=== PATIENT | male | born 1960 | race Caucasian/White ===

== ENCOUNTER 2024-06-13 21:43 | Observation (INO) ==
--- NOTE | 2024-06-13 22:00 | Emergency Department Note ---
Impression & Plan Atrial fibrillation with rapid ventricular response ED Provider Note NAME: TOOTIE WASHINGTON AGE: 63 SEX: M : 1960 ARRIVES VIA: Walk-In INFORMANT: Patient, ED PROVIDER(S): Moisés Selby DO CHIEF COMPLAINT: Palpitations HPI: The patient is a 63-year-old male who has a history of hypertension who presented to the emergency department for an evaluation of palpitations. The patient states that he has had similar symptoms in the past but is never lasted this long. He is never had a formal diagnosis. The patient denies having any nausea or vomiting. He does complain of some chest tightness. He does complain of mild shortness of breath. The patient took an extra dose of his blood pressure medication prior to coming to the emergency department. He states otherwise he has been compliant with his outpatient medication regimen. The patient does not take any blood thinners. ROS: See above HPI for pertinent positives & negatives. A total of 10 systems reviewed and were otherwise negative. PAST MEDICAL HISTORY: See Below PAST SURGICAL HISTORY: See Below FAMILY HISTORY: See Below SOCIAL HISTORY: See Below HOME MEDICATIONS: See Below ALLERGIES: See Below VITALS: See Below PHYSICAL EXAMINATION: GENERAL: Patient is awake alert in no acute distress patient is resting comfortably and showing no signs of anxiety EYES: The conjunctivae are clear. The pupils are round and reactive. EARS, NOSE, MOUTH AND THROAT: The nose is without any evidence of any deformity. NECK: The neck is nontender and supple. RESPIRATORY: Normal respiratory effort is noted there is no evidence of wheezing rhonchi or rales CARDIOVASCULAR: Tachycardic and irregular heart sounds were noted to auscultation. There is no definite murmur. GASTROINTESTINAL: The abdomen is soft. Abdomen is nontender. MUSCULOSKELETAL/EXTREMITIES: There is no evidence of gross deformity full range of motion is noted in the hips and shoulders. SKIN: There is no obvious evidence of any rash. There are no petechiae, pallor or cyanosis noted. NEUROLOGIC: Patient is awake alert and oriented x3 MEDICAL DECISION MAKING: The patient is a 63-year-old male who presented to the emergency department for an evaluation of palpitations. The patient was having episodes of palpitations over the course the last several weeks. This was very short-lived. He had an episode this evening which continued. The patient presented to the emergency department and was found to be in rapid atrial fibrillation. He was treated with IV magnesium IV fluids and IV Cardizem. On reevaluation he did go to sinus rhythm but he also had an episode of a sinus pause. The patient did not appear to have any symptoms with this episode. I discussed the patient's laboratory and radiographic studies with him. I also [facility] They have agreed to evaluate the patient in the emergency department for further management and disposition. Triage Nursing notes reviewed. Prior medical records reviewed Vital Signs: reviewed and remarkable for bradycardia. Differential diagnosis: Premature contractions, electrolyte abnormality, cardiac dysrhythmia, thyroid dysfunction, pulmonary embolism, infection, gastrointestinal, as well as other pathologies. ER treatment provided: See below Diagnostics interpreted by me: ECG: EKG was obtained in the emergency department. My interpretation is atrial fibrillation with RVR at 153 bpm. There were no PVCs noted. Nonspecific ST segment depressions were noted. No previous tracing was available. A second EKG was obtained in the emergency department. My interpretation is atrial fibrillation at 109 bpm. There was no PVCs noted. Significant improvement of the previously noted ST depressions was appreciated. A 30 EKG was obtained in the emergency department. My interpretation is sinus bradycardia at 49 bpm. There is no ectopy. There was no acute ST segment abnormalities noted. Cardiac Monitoring: An order was placed for continuous cardiac monitoring. The monitor shows a rate of 46 bpm with sinus bradycardia. Laboratory studies: As stated above and show below. Imaging studies: See below. Radiographic imaging was reviewed by myself Consultation(s): I discussed this case with Dr. Garcia who is [facility] ED COURSE: Procedures: none Critical Care: I have personally spent greater than 45 minutes of critical care time in the direct management of this patient. This includes bedside care, interpretation of diagnostic studies, and testing, discussion with consultants, patient, and family members, and other required patient management activities. This 45 minutes is in excess of all separately billable procedures. 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 Beliefs That Will Affect Care: None Current Living Situation: Family Feels Safe at Home: Yes Assistive Devices: None Allergies Allergies Allergy/AdvReac Type Severity Reaction Status Date / Time steroids Allergy Dry Eye Uncoded 06/14/24 00:20 Results & Data (ED) Vital Signs Vital Signs - 24 hr 06/13/24 21:47 06/13/24 22:02 06/13/24 22:14 Temperature 36.7 C Temperature Source Oral Pulse Rate 132 H Pulse Rate [Left Apical] 107 H Respiratory Rate 18 18 Respiratory Effort / Characteristics Non-Labored Non-Labored Spontaneous Respiratory Depth Normal Normal Respiratory Pattern Regular Regular Blood Pressure 144/93 H Blood Pressure [Right Arm] 132/86 133/92 Blood Pressure Mean 110 Blood Pressure Mean [Right Arm] 101 105 Pulse Oximetry 99 98 Oxygen Delivery Method Room Air Room Air Sepsis Recent Fever Within 48 Hours No Sepsis New/Unexplained Change in Mental Status N/A Sepsis Action Taken by Nursing No Action Required 06/13/24 22:15 06/13/24 22:30 06/13/24 22:54 Temperature Temperature Source Pulse Rate 119 H 101 H 113 H Pulse Rate [Left Apical] Respiratory Rate 22 20 Respiratory Effort / Characteristics Respiratory Depth Respiratory Pattern Blood Pressure 127/105 H Blood Pressure [Right Arm] Blood Pressure Mean 112 Blood Pressure Mean [Right Arm] Pulse Oximetry 98 98 Oxygen Delivery Method Room Air Room Air Sepsis Recent Fever Within 48 Hours Sepsis New/Unexplained Change in Mental Status Sepsis Action Taken by Nursing 06/13/24 23:50 Temperature Temperature Source Pulse Rate Pulse Rate [Left Apical] 54 L Respiratory Rate 19 Respiratory Effort / Characteristics Respiratory Depth Respiratory Pattern Blood Pressure Blood Pressure [Right Arm] 145/95 H Blood Pressure Mean Blood Pressure Mean [Right Arm] 111 Pulse Oximetry 98 Oxygen Delivery Method Room Air Sepsis Recent Fever Within 48 Hours Sepsis New/Unexplained Change in Mental Status Sepsis Action Taken by Assisted Medications Current Medication List: was personally reviewed by me Laboratory Data Attestation: I reviewed the patient's lab results. 06/13/24 21:59 06/13/24 21:59 Lab Results 06/13/24 Range/Units 21:59 WBC 6.90 (4.8-10.8) K/ul RBC 5.03 (4.70-6.10) M/uL Hgb 15.1 (14.0-18.0) g/dl Hct 45.0 (42.0-52.0) % MCV 89.5 (80.0-100.0) fL MCH 30.0 (25.0-34.0) pg MCHC 33.6 (32.0-36.0) g/dL RDW Std Deviation 42.3 (36.4-46.3) fL RDW Coeff of Anat 12.9 (11.5-14.5) % Plt Count 190 (130-400) K/uL MPV 10.3 (9.4-12.4) fL Immature Gran % (Auto) 0.1 % Neut % (Auto) 53.0 % Lymph % (Auto) 32.3 % [place] % (Auto) 7.2 % Eos % (Auto) 7.0 % Baso % (Auto) 0.4 % Neut # (Auto) 3.65 (1.40-6.50) K/uL Lymph # (Auto) 2.23 (1.20-3.40) K/uL [place] # (Auto) 0.50 (0.11-0.59) K/uL Eos # (Auto) 0.48 (0.00-0.50) K/uL Baso # (Auto) 0.03 (0.00-0.20) K/uL Immature Gran # (Auto) 0.01 (0.01-0.20) K/uL PT 10.1 (9.0-12.0) Seconds INR 0.9 (0.9-1.1) APTT 27 (21-31) Seconds PTT Ratio 1.0 Sodium 138 (136-145) mmol/L Potassium 3.9 (3.5-5.1) mmol/L Chloride 106 (98-107) mmol/L Carbon Dioxide 24 (21-32) mmol/L Anion Gap 8 (3-11) BUN 17 (6-23) mg/dl Creatinine 1.17 (0.6-1.4) mg/dl Est Cr Clr Drug Dosing 67.6 ml/min Est GFR ( Amer) 77.0 ml/min Est GFR (Non-Af Amer) 66.4 ml/min BUN/Creatinine Ratio 14.5 (10-20) Glucose 163 H (70-99(Fasting)) mg/dl Calcium 9.6 (8.6-10.3) mg/dl Magnesium 2.2 (1.7-2.4) mg/dl Total Bilirubin 0.3 (0.2-1.0) mg/dl AST 18 (13-39) U/L ALT 15 (7-52) U/L Alkaline Phosphatase 67 (34-104) U/L Troponin I High Sens 5.6 (0-20) pg/ml Total Protein 7.6 (6.0-8.3) gm/dl Albumin 4.6 (3.4-5.0) gm/dl Globulin 3.0 (2.5-4.0) gm/dl Albumin/Globulin Ratio 1.5 (0.9-2) TSH 2.827 (0.300-4.500) uIu/ml Administered Medications Potassium Chloride/Sodium Chloride (Normal Saline W/20 Meq Kcl) 20 meq in 1,000 mls @ 60 mls/hr IV .[id number] ONE; Protocol Stop: 06/14/24 16:46 Last Admin: 06/14/24 01:46 Dose: 60 mls/hr Documented By: BETSY Discontinued Medications Al Hydrox/Mg Hydrox/Simethicone (Aluminum/Magnesium Susp 30 Ml Udc) 30 ml PO NOW STA Stop: 06/13/24 22:57 Last Admin: 06/13/24 23:50 Dose: 30 ml Documented By: BETSY Diltiazem HCl (Diltiazem Hcl 5 Mg/Ml 5 Ml Vial) 10 mg IV NOW STA Stop: 06/13/24 21:58 Last Admin: 06/13/24 22:04 Dose: 10 mg Documented By: LACEY Co-signed By: GEORGINA Sodium Chloride (Nss) 500 mls @ 999 mls/hr IV .Q31M ONE Stop: 06/13/24 22:27 Last Infusion: 06/13/24 23:02 Dose: Infused Documented By: Admin: 06/13/24 22:07 Dose: 999 mls/hr Documented By: LACEY Magnesium Sulfate/Dextrose (Magnesium Sulfate / D5w) 1 gm in 100 mls @ 100 mls/hr IV NOW STA Stop: 06/13/24 22:56 Last Infusion: 06/13/24 23:44 Dose: Infused Documented By: Admin: 06/13/24 22:15 Dose: 100 mls/hr Documented By: LACEY Miscellaneous Information (Patient's Allergy Info Needs Entered) 1 each N/A NOW STA Stop: 06/13/24 21:48 Last Admin: 06/14/24 00:43 Dose: 1 each Documented By: BETSY Imaging Data Attestation: I personally reviewed and interpreted this imaging study as follows: My Impression: 1 view chest x-ray was obtained in the emergency department. My interpretation is no free air or definite infiltrate, final report pending. Discharge Plan Visit Data Chief Complaint: Cardiac Assessment Stated Complaint: HYPERTENTION, PALPITIATIONS ED Provider: Moisés Selby Discharge Problem: Atrial fibrillation with rapid ventricular response Patient Disposition: Admitted As Inpatient Discharge Instructions Interventions: ED Discharge Assessment Last Done: 06/14/24 00:31
[2024-06-13] MEDS: dilTIAZem HCl 5 MG/ML 5 ML VIAL IV STA (22:04)
[2024-06-13] MEDS: SODIUM CHLORIDE 0.9% 500 ML IV ONE (22:07)
[2024-06-13] MEDS: MAGNESIUM SULFATE / D5W 1 GM/100 ML BAG IV STA (22:15)
[2024-06-13 22:32] LABS: Basophils # (auto) 0.03 K/uL (0.00-0.20); Basophils % (auto) 0.4 %; Eosinophils # (auto) 0.48 K/uL (0.00-0.50); Hemoglobin 15.1 g/dl (14.0-18.0); Immature Granulocytes # (auto) 0.01 K/uL (0.01-0.20); Immature Granulocytes % (auto) 0.1 %; Lymphocytes # (auto) 2.23 K/uL (1.20-3.40); Lymphocytes % (auto) 32.3 %; Mean Corpuscular Hgb Conc 33.6 g/dL (32.0-36.0); Mean Corpuscular Volume 89.5 fL (80.0-100.0); Mean Platelet Volume 10.3 fL (9.4-12.4); Monocytes % (auto) 7.2 %; Neutrophils # (auto) 3.65 K/uL (1.40-6.50); Platelet Count 190 K/uL (130-400); RDW Coefficient of Variation 12.9 % (11.5-14.5); RDW Standard Deviation 42.3 fL (36.4-46.3); Red Blood Count 5.03 M/uL (4.70-6.10)
[2024-06-13 22:39] LABS: Albumin Globulin Ratio 1.5 (0.9-2); Albumin Level 4.6 gm/dl (3.4-5.0); BUN Creatinine Ratio 14.5 (10-20); Bilirubin,Total 0.3 mg/dl (0.2-1.0); Calcium 9.6 mg/dl (8.6-10.3); Creatinine Clr Calc Pharmacy 67.6 ml/min; Est GFR (Non-African American) 66.4 ml/min; Magnesium 2.2 mg/dl (1.7-2.4); Potassium 3.9 mmol/L (3.5-5.1); Total Protein 7.6 gm/dl (6.0-8.3)
[2024-06-13 22:46] LABS: Troponin I High Sensitivity 5.6 pg/ml (0-20)
[2024-06-13 22:49] LABS: INR 0.9 (0.9-1.1); Partial Thromboplastin Time 27 Seconds (21-31); Prothrombin Time 10.1 Seconds (9.0-12.0)
[2024-06-13 22:53] LABS: Thyroid Stimulating Hormone 2.827 uIu/ml (0.300-4.500)
[2024-06-13] MEDS: ALUMINUM/MAGNESIUM SUSP 30 ML UDC PO STA (23:50)
--- NOTE | 2024-06-13 23:59 | History & Physical Report ---
Date of Service June 13, 2024 Assessment & Plan (1) Atrial fibrillation with rapid ventricular response: Plan: Recurrent AF followed by bradycardia Likely secondary to OTC decongestant intake and pilocarpine topical eye prescription hypertension, stable Hyperglycemia rule out DM OBS PCU Patient counseled regarding adverse effects of OTC decongestants on heart rhythm. Continue to hold pilocarpine as recommended by patient's tin cutter. TTE, Cardiology consult Re: Recurrent AF Retrieve outpatient cardiology records from Dr. Latif from [place]. Check hemoglobin A1c DVT prophylaxis. SCDs Full code Patient requesting updates providers. Mr. Tatyana Jansen, contact #[phone]. Text document was generated using [employer] voice recognition software. It may contain grammatical or spelling errors. Kindly contact undersigned for clarification of any documentation item in question. History of Present Illness Chief Complaint: Palpitations Primary Care Provider: Dr. Winslow from [place] History obtained from patient, family, and records. Medical history significant for PAF, hypertension, glaucoma. 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 Patient maintains [place] residence due to employment at [employer]. Today, patient noted palpitations reminiscent of A-fib episodes in the past. Admits to OTC NyQuil intake for sleep. Patient also with itching earlier today attributed to increased dosage of topical pilocarpine eyedrops for glaucoma. Denies chest pain, SOB, unusual cough symptoms. He called his tin cutter from [place] on the phone who recommended stopping pilocarpine. No improvement in symptoms despite taking additional BP medication. Patient noted to be in rapid A-fib upon arrival at the ER. IV Cardizem administered at the ER. Subsequent conversion and bradycardia noted. Patient currently comfortable. Patient gives history of similar circumstances resulting in admission last year at in [place], [place]. 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 06/14/24 06/14/24 History mg-15 mg-325 mg/15 mL oral liquid (Vicks Nyquil Nighttime Relief) ergocalciferol (vitamin D2) 1,250 50,000 unit PO .WEEKLY 06/14/24 06/14/24 Histo ry mcg (50,000 unit) capsule evolocumab 140 mg/mL subcutaneous 140 mg subcut .[id number] 06/14/24 06/14/24 History pen injector (Diane Kelley) latanoprostene bunod 0.024 % eye 1 drp OPB DAILY 06/14/24 06/14/24 History drops (Vyzulta) pilocarpine HCl 4 % eye drops 1 drp OPR TID 06/14/24 06/14/24 History Past Med/Surg History Problem List (Updated 06/14/24 @ 01:55 by Moisés Selby DO) Atrial fibrillation with rapid ventricular response (Acute) Medical History Hypertension Social History Smoking Status: Never smoker Hx Alcohol Use: No Hx Substance Use: No Preferred Language: [place] Regional Controller Required: No Beliefs That Will Affect Care: None Current Living Situation: Family Feels Safe at Home: Yes Assistive Devices: None Review of Systems Review of Systems: As per HPI, all other systems reviewed and negative Physical Exam Physical Exam: GENERAL: Comfortable, pleasant, no respiratory distress SKIN: Normal color, warm HEENT: [place] palpebral conjunctivae, no ptosis, moist buccal mucosa NECK : Supple, no tenderness CHEST : CTA, no tenderness HEART : Bradycardic, no obvious murmurs ABDOMEN: Some distention, nontender EXTREMITIES : No LE swelling/tenderness, no other conspicuous deformities noted NEUROLOGIC : Coherent, no facial asymmetry, no other gross focality Results & Data Results & Data Vital Signs (Past 12 Hours) Vital Signs Temp Pulse Pulse Resp BP BP Pulse Ox 06/13/24 23:50 54 L 19 145/95 H 98 06/13/24 22:54 113 H 20 98 06/13/24 22:30 101 H 22 127/105 H 98 06/13/24 22:15 119 H 06/13/24 22:14 107 H 18 133/92 98 06/13/24 22:02 132/86 06/13/24 21:47 36.7 C 132 H 18 144/93 H 99 O2 Del Method 06/13/24 23:50 Room Air 06/13/24 22:54 Room Air 06/13/24 22:30 Room Air 06/13/24 22:15 06/13/24 22:14 Room Air 06/13/24 22:02 06/13/24 21:47 Room Air Laboratory Results Laboratory Results WBC 6.90 K/ul (4.8-10.8) 06/13/24 21:59 RBC 5.03 M/uL (4.70-6.10) 06/13/24 21:59 Hgb 15.1 g/dl (14.0-18.0) 06/13/24 21:59 Hct 45.0 % (42.0-52.0) 06/13/24 21:59 MCV 89.5 fL (80.0-100.0) 06/13/24 21:59 MCH 30.0 pg (25.0-34.0) 06/13/24 21:59 MCHC 33.6 g/dL (32.0-36.0) 06/13/24 21:59 RDW Std Deviation 42.3 fL (36.4-46.3) 06/13/24 21:59 RDW Coeff of Anat 12.9 % (11.5-14.5) 06/13/24 21:59 Plt Count 190 K/uL (130-400) 06/13/24 21:59 MPV 10.3 fL (9.4-12.4) 06/13/24 21:59 Immature Gran % (Auto) 0.1 % 06/13/24 21:59 Neut % (Auto) 53.0 % 06/13/24 21:59 Lymph % (Auto) 32.3 % 06/13/24 21:59 [place] % (Auto) 7.2 % 06/13/24 21:59 Eos % (Auto) 7.0 % 06/13/24 21:59 Baso % (Auto) 0.4 % 06/13/24 21:59 Neut # (Auto) 3.65 K/uL (1.40-6.50) 06/13/24 21:59 Lymph # (Auto) 2.23 K/uL (1.20-3.40) 06/13/24 21:59 [place] # (Auto) 0.50 K/uL (0.11-0.59) 06/13/24 21:59 Eos # (Auto) 0.48 K/uL (0.00-0.50) 06/13/24 21:59 Baso # (Auto) 0.03 K/uL (0.00-0.20) 06/13/24 21:59 Immature Gran # (Auto) 0.01 K/uL (0.01-0.20) 06/13/24 21:59 PT 10.1 Seconds (9.0-12.0) 06/13/24 21:59 INR 0.9 (0.9-1.1) 06/13/24 21:59 APTT 27 Seconds (21-31) 06/13/24 21:59 PTT Ratio 1.0 06/13/24 21:59 Sodium 138 mmol/L (136-145) 06/13/24 21:59 Potassium 3.9 mmol/L (3.5-5.1) 06/13/24 21:59 Chloride 106 mmol/L (98-107) 06/13/24 21:59 Carbon Dioxide 24 mmol/L (21-32) 06/13/24 21:59 Anion Gap 8 (3-11) 06/13/24 21:59 BUN 17 mg/dl (6-23) 06/13/24 21:59 Creatinine 1.17 mg/dl (0.6-1.4) 06/13/24 21:59 Est Cr Clr Drug Dosing 67.6 ml/min 06/13/24 21:59 Est GFR ( Amer) 77.0 ml/min 06/13/24 21:59 Est GFR (Non-Af Amer) 66.4 ml/min 06/13/24 21:59 BUN/Creatinine Ratio 14.5 (10-20) 06/13/24 21:59 Glucose 163 mg/dl (70-99(Fasting)) H 06/13/24 21:59 Calcium 9.6 mg/dl (8.6-10.3) 06/13/24 21:59 Magnesium 2.2 mg/dl (1.7-2.4) 06/13/24 21:59 Total Bilirubin 0.3 mg/dl (0.2-1.0) 06/13/24 21:59 AST 18 U/L (13-39) 06/13/24 21:59 ALT 15 U/L (7-52) 06/13/24 21:59 Alkaline Phosphatase 67 U/L (34-104) 06/13/24 21:59 Troponin I High Sens 5.6 pg/ml (0-20) 06/13/24 21:59 Total Protein 7.6 gm/dl (6.0-8.3) 06/13/24 21:59 Albumin 4.6 gm/dl (3.4-5.0) 06/13/24 21:59 Globulin 3.0 gm/dl (2.5-4.0) 06/13/24 21:59 Albumin/Globulin Ratio 1.5 (0.9-2) 06/13/24 21:59 TSH 2.827 uIu/ml (0.300-4.500) 06/13/24 21:59 Diagnostic Findings Chest x-ray as per my interpretation borderline cardiomegaly EKG as per my interpretation : Rate 150, A-fib, normal axis, ST depression inferior and anterolateral leads
[2024-06-14] MEDS ORDERED: NITROGLYCERIN SL 0.4 MG/TAB TAB SL PRN (00:31)
[2024-06-14] MEDS: Patient's ALLERGY Info needs ENTERED STA (00:43)
[2024-06-14] MEDS ORDERED: MELATONIN 3 MG TAB PO PRN (01:38)
[2024-06-14] MEDS ORDERED: LORazepam 0.5 MG TAB PO PRN (01:38)
[2024-06-14] MEDS ORDERED: PROMETHAZINE 6.25 MG/50.25 ML BAG IV PRN (01:39)
[2024-06-14] MEDS ORDERED: ACETAMINOPHEN 325 MG TAB PO PRN (01:39)
[2024-06-14] MEDS: NSS + 20MEQ KCL 20 MEQ/1,000 ML BAG IV ONE (01:46)
[2024-06-14] MEDS ORDERED: ATROPINE SULFATE 0.1 MG/ML 10ML SYR IV PRN (02:22)
[2024-06-14 06:51] LABS: Estimated Average Glucose 131 mg/dl; Hemoglobin A1C 6.2 % (4.5-5.6)
[2024-06-14 07:33] LABS: BUN Creatinine Ratio 12.2 (10-20); Calcium 8.9 mg/dl (8.6-10.3); Creatinine Clr Calc Pharmacy 68.8 ml/min; Est GFR (African American) 78.6 ml/min; Est GFR (Non-African American) 67.8 ml/min
--- NOTE | 2024-06-14 08:10 | XRay Report ---
SINGLE VIEW CHEST CLINICAL HISTORY: Atypical chest pain. FINDINGS: An AP, portable, upright chest radiograph is obtained. No prior studies are available for c omparison at the time of dictation. The cardiomediastinal silhouette is top normal for projection not e atherosclerotic calcification of the thoracic aorta. Nonspecific interstitial thickening is likely chronic. There is bibasilar scarring/atelectasis. The lungs and pleural spaces are otherwise clear. N o pneumothorax is seen. The skeletal structures are osteopenic. The bony thorax is grossly intact. IMPRESSION: No acute cardiopulmonary abnormality is identified. ACT 112: Negative or not required by law. Electronically signed by: Abdirashid Jama M.D. 06/14/2024 8:09 AM
--- NOTE | 2024-06-14 10:15 | Cardiology Consultation ---
Date of Consultation June 14, 2024 Assessment & Plan (1) Paroxysmal atrial fibrillation with conversion pauses: (2) Dyslipidemia, goal LDL below 70: (3) Hypertension: (4) Atherosclerosis of aorta: (5) Suspected sleep apnea: Plan 63-year-old male with history of infrequent symptomatic paroxysmal atrial fibrillation, hypertension, dyslipidemia, suspected sleep apnea, atherosclerosis of the aorta, and glaucoma. Patient admitted with recurrent symptomatic paroxysmal atrial fibrillation with rapid ventricular response occurring in the setting of sleep deprivation attributed to pruritus from pilocarpine, concurrent decongestant use. Rhythm spontaneously converted to sinus following administration of IV diltiazem with prolonged asymptomatic conversion pause observed. Current rhythm is sinus in the 60s with mild nocturnal bradycardia observed. Prior records not available for review. Resting echocardiography pending. Recommend avoiding decongestants, holding pilocarpine. Continuation of conservative management versus Electrophysiology referral pending results of resting echocardiography, evaluation by Dr. Perez, and patient's ongoing hospitalization. Supervising Physician Co-Signing Physician Notes Attending attestation: Case reviewed with the advanced practitioner. I have personally performed a history and physical examination on the patient. I have reviewed the advanced practitioner's documentation on the date of service referenced in note, and I agree with, and take responsibility for the plan of care. Subjective: [Patient feeling well at present. Was sleeping at time of conversion from AF to junctional rhythm with 4.5 second conversion pause. Exam: CV : regular rhythm, no murmur, no edema Data: Echocardiogram performed today reveals mild concentric LVH, normal LV wall motion LVEF normal 55-60% Normal LA size Impression/ Plan: Patient presented with an episode of paroxysmal atrial fibrillation. Symptoms occurred in the setting of exhaustion, having not slept for 2 days with pruritus having occurred due to suspected side effect of pilocarpine eyedrops for treatment of glaucoma. -Recommend discontinuation of pilocarpine -Baseline rhythm is sinus bradycardia in the 50s. Do not think there is room for adding a maintenance beta-elena. Patient has previously diagnosed atrial fibrillation with previous episodes in 2019, 2021 thunderbolt similar as that which noted now having occurred in times of high physiologic stress. His [id number] score is 1 for risk factor of hypertension, although he also has prediabetes, and his age is certainly close to 65 as his age of 63. We discussed the benefits and risks of anticoagulation from stroke prophylaxis standpoint with an agent such as Eliquis. Patient declines at present but is willing to discuss this more in the future. Future considerations include outpatient EP assessment for consideration of PVI given inability for him to take antiarrhythmic or rate lowering medications with baseline heart rate in the 50s and even worse when he is on beta-elena eye drops at which time he noticed his resting heart rate would be in the 40s. Patient would like to follow-up with our cardiology practice. Outpatient plan would include referral to [facility]. Stable for discharge from cardiology perspective. I spent a total of 65 minutes coordinating, documenting, and providing care for this patient excluding time spent in the performance of separately billed services or time spent by another provider. Navarro Perez DO History of Present Illness Reason for Consultation: Atrial fibrillation + pause Requesting Physician: Dr. Mckeon Attending Physician: Dr. Debby Cerda MD History of Present Illness Bryon Jansen is a 63-year-old male who presented to the [facility] ER in the evening of June 13, 2024 due to tachypalpitations associated with chest discomfort. Patient notes recently starting pilocarpine eyedrops after previously being on timolol for 12 years. Unfortunately he has been experiencing itching (no rash) with use of pilocarpine and has not slept the last 2 nights. He notes taking NyQuil to help him sleep. Yesterday, after going for a walk in the hot humid weather he sat down to watch television and developed tachypalpitations in association with mild chest discomfort starting at 8:45 PM. He notes that his heart rate went from 70 bpm to 140 bpm via his Apple Watch. Patient typically takes HCTZ for elevated blood pressure and took 1 last night without perceived benefit. He ultimately presented to the [facility] ER where he was found to be in atrial fibrillation with a rapid ventricular response. In the ER, on June 13, 2024 @ 22:04 patient was given 10 mg of IV diltiazem. at 23:20:01 the patient converted from atrial fibrillation with a rapid ventricular response to sinus rhythm. There was a 4.5-second conversion pause followed by a few junctional escape beats before sinus rhythm returned. Current rhythm is sinus in the 60s. Overnight sinus bradycardia into the 40s observed. Patient notes previously being evaluated for sleep apnea and was felt to be on a borderline, treatment not felt to be indica joseph at that time. The patient describes having a history of paroxysmal atrial fibrillation over the last few years. Symptoms are typically very short in duration. The episode on June 13, 2024 was the longest to date. He notes that his last episode was about 1.5 years ago. The patient describes himself as being active, walking 2 times per day, 10,000 steps per day without cardiopulmonary limitation. He denies activity related chest pain or new or worsening exertional dyspnea. No cough, chest congestion, orthopnea, PND, or lower extremity peripheral edema. No dizziness or syncope. No recent fevers or chills. No melena or hematochezia. The patient describes undergoing nuclear stress testing 2-3 months ago and reports normal findings. He describes having ambulatory EKG's performed for up to one month in duration without concerning findings. He notes previously seeing an expert regarding atrial fibrillation and anticoagulation who felt that treatment was not indicated. Past Medical and Surgical History: Paroxysmal atrial fibrillation Hypertension (prescribed losartan and as needed HCTZ) Dyslipidemia (intolerant to statin, on Repatha) Borderline obstructive sleep apnea Glaucoma (previously treated with timolol, currently pilocarpine) Cataract surgery Family History: Not notable for CAD or PAF. Mother of old age, 82. Father of old age, 87. Patient notes having 3 brothers and 1 sisters, all without cardiac issues Social History: Non-smoker. No smokeless tobacco. No illegal drug use. Social alcohol only. 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 1 child without cardiac issues. Patient has 2 homes, one in [place], [place] and another in [facility]. Allergies Allergy/AdvReac Type Severity Reaction Status Date / Time steroids Allergy Dry Eye Uncoded 06/14/24 00:20 Home Medications Medication Instructions Recorded Confirmed Type [id number] 6.25 0 ml PO HS PRN .. 06/14/24 06/14/24 History mg-15 mg-325 mg/15 mL oral liquid (Vicks Nyquil Nighttime Relief) ergocalciferol (vitamin D2) 1,250 50,000 unit PO .WEEKLY 06/14/24 06/14/24 History mcg (50,000 unit) capsule evolocumab 140 mg/mL subcutaneous 140 mg subcut .[id number] 06/14/24 06/14/24 History pen injector (Repatha SureClick) latanoprostene bunod 0.024 % eye 1 drp OPB DAILY 06/14/24 06/14/24 History drops (Vyzulta) pilocarpine HCl 4 % eye drops 1 drp OPR TID 06/14/24 06/14/24 History Patient History Medical History Hypertension Social History Smoking Status: Never smoker Hx Alcohol Use: No Hx Substance Use: No Preferred Language: Greenlandic Communication Ability: Effective Reservation Agent Required: No Beliefs That Will Affect Care: None Current Living Situation: Family Feels Safe at Home: Yes Assistive Devices: None Review of Systems Review of Systems: Complete Review of Systems is as stated above, negative, or noncontributory. Physical Exam Physical Exam: General: A&Ox3. NAD. HENT: Normocephalic. Atraumatic. Eyes: PER. Conjunctiva pink, sclera clear. Neck: No carotid bruits. No JVD. No HJR. Heart: RRR, 60 bpm. Grade I-II systolic murmur. No diastolic murmur. No rub. Lungs: Decreased at the right base. Right basilar rales and rhonchi. No wheeze. Abdomen: +BS. Soft. Nontender. No masses or organomegaly. Extremities: No clubbing, cyanosis, or edema. Limited neurological examination is without focal deficits. Pulses: radial=2/4, posterior tibial=2/4. Results & Data Vital Signs (Past 12 Hours) Vital Signs Temp Pulse Pulse Resp BP BP Pulse Ox 06/14/24 07:06 36.4 C L 50 L 18 114/73 98 06/14/24 05:01 50 L 06/14/24 03:32 36.6 C 53 L 20 126/79 99 06/14/24 02:28 46 L 16 123/81 98 06/14/24 01:38 46 L 19 96 06/14/24 01:38 06/14/24 01:38 49 L 19 131/93 98 06/13/24 23:50 54 L 19 145/95 H 98 06/13/24 22:54 113 H 20 98 06/13/24 22:30 101 H 22 127/105 H 98 06/13/24 22:15 119 H 06/13/24 22:14 107 H 18 133/92 98 Pulse Ox O2 Del Method O2 Del Method 06/14/24 07:06 Room Air 06/14/24 05:01 06/14/24 03:32 Room Air 06/14/24 02:28 Room Air 06/14/24 01:38 Room Air 06/14/24 01:38 97 Room Air 06/14/24 01:38 Room Air 06/13/24 23:50 Room Air 06/13/24 22:54 Room Air 06/13/24 22:30 Room Air 06/13/24 22:15 06/13/24 22:14 Room Air Laboratory Results Cardiac Enzymes 06/13/24 Range/Units 21:59 AST 18 (13-39) U/L Troponin I High Sens 5.6 (0-20) pg/ml Coagulation 06/13/24 Range/Units 21:59 PT 10.1 (9.0-12.0) Seconds APTT 27 (21-31) Seconds CBC 06/13/24 Range/Units 21:59 WBC 6.90 (4.8-10.8) K/ul RBC 5.03 (4.70-6.10) M/uL Hgb 15.1 (14.0-18.0) g/dl Hct 45.0 (42.0-52.0) % Plt Count 190 (130-400) K/uL Neut # (Auto) 3.65 (1.40-6.50) K/uL Lymph # (Auto) 2.23 (1.20-3.40) K/uL Bucks # (Auto) 0.50 (0.11-0.59) K/uL Eos # (Auto) 0.48 (0.00-0.50) K/uL Baso # (Auto) 0.03 (0.00-0.20) K/uL Comprehensive Metabolic Panel 06/13/24 06/14/24 Range/Units 21:59 06:14 Sodium 138 141 (136-145) mmol/L Potassium 3.9 4.0 (3.5-5.1) mmol/L Chloride 106 108 H (98-107) mmol/L Carbon Dioxide 24 28 (21-32) mmol/L BUN 17 14 (6-23) mg/dl Creatinine 1.17 1.15 (0.6-1.4) mg/dl Glucose 163 H 109 H (70-99(Fasting)) mg/dl Calcium 9.6 8.9 (8.6-10.3) mg/dl AST 18 (13-39) U/L ALT 15 (7-52) U/L Alkaline Phosphatase 67 (34-104) U/L Total Protein 7.6 (6.0-8.3) gm/dl Albumin 4.6 (3.4-5.0) gm/dl Intake and Output 06/13/24 06/14/24 06/14/24 22:59 06:59 14:59 Intake Total 600 / 600 Balance 600 / 600 Intake: IV 600 / 600 Magnesium Sulfate / D5w 1 gm In 100 / 100 100 ml @ 100 mls/hr IV NOW STA Rx#:[id number] Sodium Chloride 0.9% 500 ml @ 500 / 500 999 mls/hr IV .Q31M ONE Rx#: [id number] Other: # Unmeasured Voids 1 Weight 78.6 kg 77.6 kg Weight Measurement Method Chair Scale Standing Scale Diagnostic Findings Initial EKG in the ER on June 13, 2024 at 21:53:52 revealed atrial fibrillation with a ventricular rate of 153 bpm, with diffuse ST segment depression, QTc 456 ms. EKG dated and timed June 13, 2023 at 22:58:13 revealed atrial fibrillation with a ventricular rate of 109 bpm, QTc 463 ms. EKG dated and timed June 13, 2024 at 23:23:39 revealed sinus bradycardia at 49 bpm with marked sinus arrhythmia, resolution of the ST depression, QTc 381 ms. Laboratory work in the emergency room included a CBC with differential, all within normal range. Sodium was normal at 138. Potassium was normal at 3.9. BUN was normal at 17. Creatinine was normal at 1.17. Magnesium was normal at 2.2. Random glucose was elevated 163 mg/deciliter. Hemoglobin A1c 6.2%. Calcium was normal at 9.6. LFTs were normal. High-sensitivity troponin negative at 5.6. TSH normal at 2.827. Admission chest x-ray without acute cardiopulmonary abnormality. Atherosclerotic calcification noted in the thoracic aorta. Nonspecific interstitial thickening noted, felt to be chronic, also with bibasilar scarring/atelectasis. Resting echocardiography: Completed, pending interpretation.
[2024-06-14 11:43] VITALS: BP 113/71; RESP 17; TEMP 97.9; O2SAT 97
--- NOTE | 2024-06-14 12:44 | Hospitalist Progress Note ---
Date of Service June 14, 2024 Assessment & Plan (1) Atrial fibrillation with rapid ventricular response: Plan: Paroxysmal atrial fibrillation with rapid ventricular response Likely secondary to OTC decongestant intake and pilocarpine topical eye prescription Presented with acute palpitation noted to heart rate of more than 160 Received intravenous Cardizem and noted to have significant bradycardic pauses Appreciate cardiology input and recommendation Remains in sinus rhythm now and awaiting echocardiogram Advised to stop pilocarpine drop and also stop taking the NyQuil. Will observe in telemetry unit Hypertension, stable Hyperglycemia rule out DM Suspected sleep apnea-will advise outpatient sleep study on discharge Check hemoglobin A1c 6.2 DVT prophylaxis. SCDs Full code Patient requesting updates providers. Mr. Tatyana Jansen, contact #[phone]. Admission and Anticipated Discharge Date Admission Date: June 13, 2024 Subjective 06/14/2024 The patient was seen and examined in telemetry unit in presence of the He has been using pilocarpine and also used dose of NyQuil last evening Complained to have palpitation off and on and noted to have heart rate as high as 160 in Apple Watch Has been feeling much better since admission and the rate is controlled with sinus rhythm at 55 now Denies any other significant symptoms Review of Systems Review of Systems: All systems reviewed and are unremarkable as noted below Physical Exam Physical Exam: Lying in bed without any acute distress Constitutional: well developed, well nourished and average body habitus; not ill appearing Eyes: PERRL, conjunctivae normal, anicteric sclerae ENMT: external ear and nose normal, oropharynx normal Neck: trachea midline, no thyromegaly Respiratory: no respiratory distress Auscultation: lungs clear to auscultation bilaterally Cardiovascular: Rate/Rhythm: regular rate, regular rhythm and + bradycardic Heart Sounds: normal S1 and normal S2; no murmur Extremities: no edema Gastrointestinal (Abdomen): Inspection/Auscultation: normal bowel sounds; abdomen not distended Percussion/Palpation: abdomen soft; abdomen nontender Musculoskeletal: No acute arthritis involving any of the joint Neurologic: normal touch/pain/proprioception and moves all extremities; no focal motor deficits Psychiatric: A+Ox3, euthymic affect Lymphatic: no cervical or axillary lymphadenopathy Results & Data Results & Data Vital Signs (Past 12 Hours) Vital Signs Temp Pulse Pulse Resp BP Pulse Ox Pulse Ox 06/14/24 11:42 36.6 C 55 L 17 113/71 97 06/14/24 07:06 36.4 C L 50 L 18 114/73 98 06/14/24 05:01 50 L 06/14/24 03:32 36.6 C 53 L 20 126/79 99 06/14/24 02:28 46 L 16 123/81 98 06/14/24 01:38 46 L 19 96 06/14/24 01:38 97 06/14/24 01:38 49 L 19 131/93 98 O2 Del Method O2 Del Method 06/14/24 11:42 Room Air 06/14/24 07:06 Room Air 06/14/24 05:01 06/14/24 03:32 Room Air 06/14/24 02:28 Room Air 06/14/24 01:38 Room Air 06/14/24 01:38 Room Air 06/14/24 01:38 Room Air Laboratory Results Short CBC 06/13/24 Range/Units 21:59 WBC 6.90 (4.8-10.8) K/ul Hgb 15.1 (14.0-18.0) g/dl Hct 45.0 (42.0-52.0) % Plt Count 190 (130-400) K/uL BMP 06/13/24 06/14/24 21:59 06:14 Sodium 138 141 Potassium 3.9 4.0 Chloride 106 108 H Carbon Dioxide 24 28 BUN 17 14 Creatinine 1.17 1.15 Glucose 163 H 109 H Calcium 9.6 8.9 Liver Function 06/13/24 Range/Units 21:59 Total Bilirubin 0.3 (0.2-1.0) mg/dl AST 18 (13-39) U/L ALT 15 (7-52) U/L Alkaline Phosphatase 67 (34-104) U/L Albumin 4.6 (3.4-5.0) gm/dl Medications Administered Current Inpatient Medications Acetaminophen (Acetaminophen 325 Mg Tab) 650 mg PO QID PRN PRN Reason: pain/fever Stop: 07/14/24 01:38 Atropine Sulfate (Atropine Sulfate 0.1 Mg/Ml 10ml Syr) 1 mg IV Q3M PRN PRN Reason: symptomatic bradycardia Potassium Chloride/Sodium Chloride (Normal Saline W/20 Meq Kcl) 20 meq in 1,000 mls @ 60 mls/hr IV .[id number] ONE; Protocol Stop: 06/14/24 16:46 Last Admin: 06/14/24 01:46 Dose: 60 mls/hr Promethazine HCl (Phenergan) 6.25 mg in 50.25 mls @ 201 mls/hr IV Q6H PRN PRN Reason: Nausea And Vomiting Stop: 07/14/24 01:38 Lorazepam (Lorazepam 0.5 Mg Tab) 0.5 mg PO TID PRN PRN Reason: Anxiety Stop: 07/14/24 01:37 Melatonin (Melatonin 3 Mg Tab) 3 mg PO HS PRN PRN Reason: Sleep Stop: 07/14/24 01:37 Miscellaneous (Order Awaiting Action: Latanoprostene Bunod [Vyzulta] 0.024 % Drops) 1 each N/A QS DARRELL Stop: 07/14/24 07:59 Last Admin: 06/14/24 09:44 Dose: Not Given Nitroglycerin (Nitroglycerin Sl 0.4 Mg/Tab Tab) 0.4 mg SL Q5M PRN PRN Reason: Chest Pain Stop: 07/14/24 00:30
[2024-06-14 15:55] VITALS: PULSE 55
--- NOTE | 2024-06-15 08:33 | Discharge Summary ---
Date of Service June 15, 2024 Admission HPI Per Admitting Provider History obtained from patient, family, and records. Medical history significant for PAF, hypertension, glaucoma. 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 Patient maintains [place] residence due to employment at [employer]. Today, patient noted palpitations reminiscent of A-fib episodes in the past. Admits to OTC NyQuil intake for sleep. Patient also with itching earlier today attributed to increased dosage of topical pilocarpine eyedrops for glaucoma. Denies chest pain, SOB, unusual cough symptoms. He called his [employer] assistant manager from [place] on the phone who recommended stopping pilocarpine. No improvement in symptoms despite taking additional BP medication. Patient noted to be in rapid A-fib upon arrival at the ER. IV Cardizem administered at the ER. Subsequent conversion and bradycardia noted. Patient currently comfortable. Patient gives history of similar circumstances resulting in admission last year at [facility] in [place], [place]. 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 Exam Per Admitting Provider Physical Exam: GENERAL: Comfortable, pleasant, no respiratory distress SKIN: Normal color, warm HEENT: [place] palpebral conjunctivae, no ptosis, moist buccal mucosa NECK : Supple, no tenderness CHEST : CTA, no tenderness HEART : Bradycardic, no obvious murmurs ABDOMEN: Some distention, nontender EXTREMITIES : No LE swelling/tenderness, no other conspicuous deformities noted NEUROLOGIC : Coherent, no facial asymmetry, no other gross focality Principal Diagnosis Paroxysmal atrial fibrillation, conversion pauses Discharge Exam Lying in bed without any acute distress Constitutional well developed, well nourished and average body habitus; not ill appearing Eyes PERRL, conjunctivae normal, anicteric sclerae ENMT external ear and nose normal, oropharynx normal Neck trachea midline, no thyromegaly Respiratory no respiratory distress Auscultation: lungs clear to auscultation bilaterally Cardiovascular Rate/Rhythm: regular rate, regular rhythm and + bradycardic Heart Sounds: normal S1 and normal S2; no murmur Extremities: no edema Gastrointestinal (Abdomen) Inspection/Auscultation: normal bowel sounds; abdomen not distended Percussion/Palpation: abdomen soft; abdomen nontender Neurologic normal touch/pain/proprioception and moves all extremities; no focal motor deficits Psychiatric A+Ox3, euthymic affect Lymphatic no cervical or axillary lymphadenopathy Discharge Data Allergies Allergy/AdvReac Type Severity Reaction Status Date / Time steroids Allergy Dry Eye Uncoded 06/14/24 00:20 Consultations 06/13/24 23:50 ED Decision to Admit Stat 06/14/24 01:36 Consult Cardiology Routine HIM [Consult Health Information Management] Routine Hospital Course (1) Atrial fibrillation with rapid ventricular response: Paroxysmal atrial fibrillation with rapid ventricular response Likely secondary to OTC decongestant intake and pilocarpine topical eye prescription Presented with acute palpitation noted to heart rate of more than 160 Received intravenous Cardizem and noted to have significant bradycardic pauses Appreciate cardiology input and recommendation Remains in sinus rhythm now and awaiting echocardiogram Advised to stop pilocarpine drop and also stop taking the NyQuil. Will observe in telemetry unit Hypertension, stable Hyperglycemia rule out DM Suspected sleep apnea-will advise outpatient sleep study on discharge Check hemoglobin A1c 6.2 DVT prophylaxis. SCDs Full code Patient requesting updates providers. Mr. Tatyana Jansen, contact #[phone]. Total Time Total Time Spent Total Time Spent (In Minutes): 35 minutes Discharge Plan Discharge Items Patient Disposition: Home - Self-Care Reason For Visit: PAF, VLADIMIR Discharge Diagnosis: Paroxysmal atrial fibrillation, conversion pauses Condition on Discharge: Good Activity: Resume your previous activity Non-emergency contact: Primary Care Provider Call non-emergency contact if: you have any medication questions and your symptoms worsen Follow-up/Referrals: PCP,NO [Primary Care Provider] - Diet: Heart Healthy Addtl Attending Provider Instructions: Please take precaution to avoid falls Do not take any more pilocarpine and avoid NyQuil No other change in medications Please make an appointment with the PCP within 7 days Please keep appointment with your healthcare provider Pending Studies at Discharge: No Stand-Alone Forms: My [employer], Smoking Cessation Medications and DC Order Prescriptions: Continued ergocalciferol (vitamin D2) 1,250 mcg (50,000 unit) capsule 50,000 unit PO .WEEKLY Rx Instructions: sun Repatha SureClick 140 mg/mL pen injector 140 mg SUBCUT .[id number] Vyzulta 0.024 % drops 1 drp OPB DAILY Discontinued pilocarpine HCl 4 % drops 1 drp OPR TID Vicks Nyquil Nighttime Relief 6.25-15-325 mg/15 mL Liquid 0 ml PO HS PRN (Reason: ..) Discharge Orders: Discharge Order (Routine); Ordered 06/14/24 Ordered By: Debby Williamson/Other Patient Handouts: Prediabetes, 5 Steps for Eating Healthier, AFib Admission Data Admit Date/Time: 06/13/24 23:59 Attending Provider: Debby Cerda Admit Provider: Marco Mckeon Primary Care Provider: PCP,NO Other Providers: Marco Mckeon; Alberta Ferreira; Navarro Perez; Roly Chamberlain; Lalo Cohen; Flex Flanagan; Pradeep Jon; Cande Pollard; Cori Dodson; Gillian Jones; Alberta Ballesteros; Jeff Rice; Garfield Awan; Jud Wiseman; Abigail Martins; Laney Walters; Eber Younger; Jordin Vega; La Collins Other Interventions: Discharge Summary Assessment (RN) Last Done: 06/14/24 15:52
--- NOTE | 2024-06-15 21:49 | Electrocardiogram Report ---
Test Reason : Blood Pressure : */* mmHG Vent. Rate : 109 BPM Atrial Rate : * BPM P-R Int : * ms QRS Dur : 92 ms QT Int : 344 ms P-R-T Axes : * 23 61 degrees QTcB Int : 463 ms Atrial fibrillation with rapid ventricular response Abnormal ECG When compared with ECG of 13-Jun-2024 21:53, ST no longer depressed in Inferior leads ST no longer depressed in Anterolateral leads Confirmed by Angelito Mcintyre ([id number]) on 06/15/2024 9:49:21 PM Referred By: REFERRED SELF Confirmed By: Angelito Mcintyre
--- NOTE | 2024-06-15 21:49 | Electrocardiogram Report ---
Test Reason : Blood Pressure : */* mmHG Vent. Rate : 153 BPM Atrial Rate : * BPM P-R Int : * ms QRS Dur : 88 ms QT Int : 286 ms P-R-T Axes : * 39 98 degrees QTcB Int : 456 ms Atrial fibrillation with rapid ventricular response ST depression, consider subendocardial injury Nonspecific T wave abnormality Abnormal ECG No previous ECGs available Confirmed by Angelito Mcintyre ([id number]) on 06/15/2024 9:48:38 PM Referred By: Confirmed By: Angelito Mcintyre
--- NOTE | 2024-06-15 21:50 | Electrocardiogram Report ---
Test Reason : Blood Pressure : */* mmHG Vent. Rate : 49 BPM Atrial Rate : 49 BPM P-R Int : 120 ms QRS Dur : 80 ms QT Int : 422 ms P-R-T Axes : 12 18 46 degrees QTcB Int : 381 ms Sinus bradycardia with marked sinus arrhythmia Otherwise normal ECG When compared with ECG of 13-Jun-2024 22:58, Sinus rhythm has replaced Atrial fibrillation Vent. rate has decreased by 60 bpm Nonspecific T wave abnormality no longer evident in Lateral leads Confirmed by Angelito Mcintyre ([id number]) on 06/15/2024 9:50:06 PM Referred By: REFERRED SELF Confirmed By: Angelito Mcintyre
== END 2024-06-14 16:42 | disposition home or self-care (01) ==
LOC: ED 21:43 → EDINP 23:59 → INTOOBSV 23:59 → 2S 06-14 00:31